=== PATIENT | female | born 1940 | race Caucasian/White ===

== ENCOUNTER → 2023-06-05 08:24 | Outpatient (REF) | payer OTHER, SELFPAY | LOC: WDC 08:24 | PROVIDERS: ATTENDING PHYSICIAN Internal Medicine | DX: Z12.31 Encounter for screening mammogram for malignant neoplasm of breast (principal) | CPT/HCPCS: 77063; 77067 ==

== ENCOUNTER → 2023-09-08 08:37 | Outpatient (REF) | payer OTHER, SELFPAY | LOC: RAD 08:37 | PROVIDERS: ATTENDING PHYSICIAN Internal Medicine | DX: N18.9 Chronic kidney disease, unspecified (principal) | CPT/HCPCS: 76770 ==

== ENCOUNTER → 2024-06-07 12:07 | Outpatient (REF) | payer OTHER, SELFPAY | LOC: WDC 12:07 | PROVIDERS: ATTENDING PHYSICIAN Internal Medicine | DX: Z12.31 Encounter for screening mammogram for malignant neoplasm of breast (principal) | CPT/HCPCS: 77063; 77067 ==

== ENCOUNTER 2024-11-25 15:13 | Inpatient (IN) | payer OTHER, SELFPAY ==
[2024-11-25] VITALS (7 sets, daily range): BP systolic 115–158; BP diastolic 52–81; BMI 22.7; BMI 22.4
--- NOTE | 2024-11-25 11:00 | ED.GENMED ---
History of Present Illness
General
Chief Complaint: Fall
Source: patient and family
Time Seen by Provider: 11/25/24 10:47
History of Present Illness
History of Present Illness:
84-year-old female with past medical history of hypertension, previous left breast cancer presenting to the emergency department for evaluation of reported change in mental status, nausea, chills and generalized weakness resulting in a fall
yesterday evening with left-sided head trauma noted. Patient notes that about 2 days ago she started with urinary frequency, urgency and dysuria typical of a urinary tract infection for her, she gave a urine sample to her urologist Dr. Parra, and
was started on an antibiotic sees patient unsure as to what antibiotic she was started on). Daughter notes that this morning when she called the patient the patient seemed to have a change in mental status, hung up on the daughter a call for her
but by the time they got to the emergency department the daughter is stating patient seems to be back to her usual mental status. At present time patient's only concern is mild nausea, she denies any back or flank pain, was unaware of any fevers,
no chest pain or shortness of breath and has no other concerns at this time.
Past History
Past History
ED Past Medical History: Cancer and HTN
ED Past Surgical History: Other
Social History
Tobacco: Non-smoker
Alcohol: None
Drug: None
Personal:
Living: alone
Review of Systems
Review of Systems
All Other Systems: ROS reviewed and negative except as documented in HPI and ROS
Phy Exam
Physical Exam
Physical Exam:
GENERAL: Alert , in no apparent distress
HEAD: Normocephalic atraumatic
EYE: clear conjunctiva
NECK: Supple
ENT: o/p clr, mmm.
CARDIAC: Regular rate and rhythm .
LUNGS: Clear breath sounds bilaterally, no acute respiratory distress, no wheezes/rales/rhonchi
ABDOMEN: Soft, without focal tenderness, no r/g, no cvat
NEUROLOGICAL: Alert and oriented
SKIN: Warm and dry, skin intact.
MUSCULOSKELETAL: No edema, well perfused.
PSYCH: Normal and appropriate interaction.
Scores
Heart Failure Risk
Heart Failure Risk Score: Not Applicable
Heart Score for Chest Pain Patients
STEMI patient?: Not applicable
Withdrawal Assessment of Alcohol
Withdrawal Assessment Completed?: Not applicable
Sepsis
Sepsis Screening
Sepsis Assessment: Sepsis
Sepsis Screen
Sepsis Screen: Sepsis
Date: 11/25/24
Time: 15:11
Course
Orders/Labs/Results
Orders:
Orders
11/25/24 10:54
0.9% Sodium Chloride 1000 ml [Nss] 1,800 ml IV NOW STA
Ondansetron Injectable [Zofran] 4 mg IV NOW STA
11/25/24 10:56
CT Head W/o Iv Contrast Urgent
Comment:
Reason For Exam: fall, left sided head trauma
11/25/24 11:00
Lactic Acid Q4H
Comment: CANCEL 2nd LACTIC ACID IF 1st LACTIC ACID IS LESS THAN 2
11/25/24 11:08
Complete Blood Count/With Diff Urgent
Comprehensive Metabolic Panel Urgent
Lactic Acid Q4H
Comment: CANCEL 2nd LACTIC ACID IF 1st LACTIC ACID IS LESS THAN 2
Manual Differential Urgent
Blood Culture Q30M
JESSE Source: Blood/Venous
Specimen Description:
11/25/24 11:15
Blood Culture Q30M
JESSE Source: Blood/Venous
Specimen Description:
11/25/24 11:56
US Abdomen Complete/Upper Urgent
Comment:
Reason For Exam: fever, abnormal LFT, change in mental status
11/25/24 12:02
Piperacillin/Tazo 3.375 Gram [Zosyn] 3.375 gram in 50 ml IV NOW
11/25/24 12:05
COVID-19 Antigen Urgent
Source: Nasal Swab
Ehrlichia/Anaplasma by PCR [S] Urgent
Lyme Progressive Urgent
Blood Parasites Urgent
JESSE Source: Blood/Venous
Specimen Description:
11/25/24 14:00
Urinalysis Reflex To Culture Urgent
Date Specimen was Collected: 11/25/24
Time Specimen was Collected: 13:50
Urine Microscopic Reflex Cult Urgent
11/25/24 14:15
Admit/Transfer Patient As Directed
Co-Sign Provider:
Level of Care: Inpatient admission
Assign to:: Medical/Surgical
Physician / Group: dania
Diagnosis: sepsis uti
Reason for Hospitalization: sepsis uti
Expected length of stay greater than two midnights?: Yes
ELOS- Estimated Length of Stay in days: 2
I certify the patient meets the requirements for IP care: Yes
PRN Pain Medication Management As Directed
May give lesser potent ordered pain med per pt: Yes
preference::
Protocol:: Medication orders for pain may be administered in a
manner that supports deferring to patient preference
when the pt is:
- Requesting an ordered lesser potent pain medication.
Least to most potent pain medications are defined
as: acetaminophen < NSAID < tramadol < opioids
(morphine, oxycodone, hydromorphone).
- Requesting a lesser dose of the same medication IF
ORDERED.
- Requesting a less intrusive route of administration
if both routes are prescribed by the provider (PO <
IV).
11/25/24 14:16
Code Status As Directed
Resuscitation Status: Do not resuscitate
Reached after discussion with pt or family/Healthcare POA: Yes
DNR Bracelet Application ONCE
Abnormal Lab Results
11/25/24 11/25/24
11:08 14:00
MPV 11.5 H fL
(7.4-10.4)
Abs Neuts (Manual) 9.7 H 10^3/uL
(1.4-6.5)
Segmented Neutrophils 83 H %
(42-75)
Band Neutrophils 14 H %
(0-3)
Lymphocytes (Manual) 3 L %
(20-51)
Sodium 133 L mmol/L
(135-145)
Potassium 3.1 L mmol/L
(3.5-5.1)
Chloride 95 L mmol/L
(98-107)
BUN 34 H mg/dl
(7-17)
Creatinine 2.1 H mg/dL
(0.6-1.0)
Glucose 126 H mg/dl
(70-99)
Total Bilirubin 1.9 H mg/dl
(0.2-1.3)
AST 531 H* U/L
(14-36)
ALT 266 H U/L
(0-35)
Alkaline Phosphatase 140 H U/L
(38-126)
Urine Ketones 1+ A
(Negative)
Ur Occult Blood Reflex 2+ A
(Negative)
Urine RBC 7-10 A /HPF
(0-2)
Urine Albumin (Reflex) 2+ A
(Neg - Trace)
11/25/24 11:08
11/25/24 11:08
Vital Signs
Initial and Last Documented VS:
Initial Vital Signs
Temp Pulse Resp BP Pulse Ox
100.9 F H 81 18 126/81 95
11/25/24 10:07 11/25/24 10:07 11/25/24 10:07 11/25/24 10:07 11/25/24 10:07
Last Documented Vital Signs
Temp Pulse Resp BP Pulse Ox
100.1 F 62 22 115/66 98
08/21/25 11:06 11/25/24 14:30 11/25/24 14:30 11/25/24 14:00 11/25/24 14:30
MDM/Problems Addressed
Differential Diagnosis Includes:
Cystitis
Pyelonephritis
Uroseptic/bacteremia
Kidney stone
Electrolyte imbalance
Anemia
Acute kidney injury
TIA considered/CVA however given no other neurologic findings thought to be much less likely
Intracranial bleeding given the head trauma
MDM/Problems Addressed:
84-year-old female presenting to the ER for evaluation after she started to feel unwell yesterday evening while out at dinner with family, chills and nausea, daughter reports change in mental status today. Patient found to be febrile on arrival to
the ER. Will treat fever with Tylenol. Sepsis fluids ordered as well as Zofran for symptoms. Labs ordered. Will check urinalysis. Head CT ordered given the fall and trauma. Anticipate admission.
*Radiology
Radiology exam reviewed: radiology read reviewed
*Pulse Oximetry
SaO2: 95
Oxygen Mode of Delivery: Room air
Patient hypoxic: no
*Critical Care Note
Total Time (30-74mins, 75-104mins- exclusive of procedures): Not Applicable
Patient Management
Discussion with other providers: Hospitalist
Escalation/DeEscalation of care consider admission/obs:
Patient's workup with no leukocytosis however there is significantly elevated neutrophil count, bandemia, patient has known mild chronic kidney disease, slightly worse than baseline as well as significantly abnormal LFTs. Considering possible
ascending cholangitis given her fever and reported change in mental status. Stat ultrasound of the abdomen/gallbladder ordered. IV Zosyn ordered for possible UTI in addition to possible GI pathology. Ultrasound of the abdomen ultimately ended up
without any acute findings. Unclear source for patient's abnormal LFTs. Hospitalist team was notified and accepts for continued evaluation and treatment.
ED Attending Note
-
Portions of this chart may have been created with voice recognition software.� Occasional wrong word or��sound alike� substitutions may have occurred due to the inherent limitations of voice recognition software.
Discharge Plan
Departure
Patient Disposition: Admit
Date of Disposition: 11/25/24
Time of Disposition: 13:40
Presentation/result/management discussed w/ accepting MD/DO: Hospitalist
Discharge Problem:
Sepsis, Abnormal LFTs, KOURTNEY (acute kidney injury)
Prescriptions:
No Action
amlodipine [Norvasc] 5 mg Tablet
5 mg PO DAILY
hydrochlorothiazide 25 mg Tablet
25 mg PO DAILY
nitrofurantoin monohyd/m-cryst [Macrobid] 100 mg Capsule
100 mg PO BID
Rx Instructions:
for 5 days starting 11/24/24
cholecalciferol (vitamin D3) [Vitamin D3] 25 mcg (1,000 unit) Tablet
25 mcg PO DAILY
Referrals:
Nick Hui MD [Family Provider, Internal Medicine]
Interventions
Interventions:
*Risk Screen - Suicide Last Done: 11/25/24 11:03
*General Assessment Last Done: 11/25/24 11:03
*Neglect/Abuse Screening Last Done: 11/25/24 11:03
*ED- Fall Risk Assessment Last Done: 11/25/24 11:03
*ED COVID-19 Vaccine History Last Done: 11/25/24 11:03
ED-Musculoskeletal Assessment Last Done: 11/25/24 12:28
ED- Neurological Assessment Last Done: 11/25/24 11:04
ED-Skin Assessment Last Done: 11/25/24 11:04
Discharge Date and Time
Print Language: CHINESE
[2024-11-25] MEDS: NSS 1800 ML IV (11:07)
[2024-11-25] MEDS: ZOFRAN 4 MG IV (11:08)
[2024-11-25 11:29] LABS: Hematocrit 40.4 % (37.0-47.0); Hemoglobin 14.3 g/dL (12.0-16.0); Mean Corp Hgb Conc. 35.4 g/dL (33.0-37.0); Mean Corpuscular Volume 85.1 fL (81.0-99.0); Platelet Count 136 10^3/uL (130-400); Red Cell Dist. Width 12.4 % (11.5-14.5)
[2024-11-25 11:51] LABS: ALT (SGPT) 266 U/L (0-35); AST (SGOT) 531 U/L (14-36); Albumin 4.6 g/dl (3.5-5.0); Alkaline Phosphatase 140 U/L (38-126); Blood Urea Nitrogen 34 mg/dl (7-17); Calcium 9.8 mg/dl (8.4-10.2); Carbon Dioxide 27 mmol/L (22-30); Chloride 95 mmol/L (98-107); Estimated Creatinine Clearance 16 ml/min; Glucose 126 mg/dl (70-99); Potassium 3.1 mmol/L (3.5-5.1); Sodium 133 mmol/L (135-145); Total Protein 7.5 g/dl (6.3-8.2); eGFR 23.09
[2024-11-25 11:56] LABS: Absolute Neutrophils -Man Diff 9.7 10^3/uL (1.4-6.5); Normal RBC Morphology Yes; Platelets Checked Yes; Total Cells Counted 100
[2024-11-25] MEDS: ZOSYN 50 IV ×2 (12:11→17:34)
[2024-11-25 12:46] LABS: COVID-19 Antigen Negative (Negative)
--- NOTE | 2024-11-25 14:19 | HPS.HSE ---
Addendum entered and electronically signed by Ирина Pennington MD 11/25/24 19:03:
Code status do not Intubate.
Original Note:
Family Physician
-
Family Physician: Nick Hui
Chief Complaint
-
urinary burning
History of Present Illness
84-year-old female past medical history of hypertension, breast cancer status post lumpectomy presenting with change in mental status, CKD, nausea and chills and generalized weakness resulting in a fall yesterday evening with left-sided head trauma
noted. 2 days ago she started having urinary frequency, urgency and burning with urination typical of prior urinary tract infections for her. She gave urine sample to her urologist Dr. Parra and was started on Macrobid yesterday. This morning
patient had change mental status and hung up on a call from her daughter but the time they got to emergency department daughter states that patient is back to her normal mental status. Patient did have nausea and vomiting today but denies any back
or flank pain. No fever. No chest pain or shortness of breath. Denies abdominal pain.
She drinks alcohol occasionally. Denies smoking.
Medical History
Past Medical History
Past Medical History: Reports Other (hypertension, breast cancer status post lumpectomy)
Past Surgical History: Reports Other (Tonsillectomy, Dupuytren's contracture surgery, bunion surgery, lumpectomy)
Social History
Tobacco: Non-smoker
Alcohol: None
Drug: None
Family History
Family History: Not pertinent
Allergies / Home Medications
Allergies reflects when Allergies were last updated in [facility].
Home Medications with original date entered in [facility]
Allergy/Medication List:
Allergies
Allergy/AdvReac Type Severity Reaction Status Date / Time
propoxyphene HCl (From Allergy Hives Verified 04/15/13 09:24
[place])
Home Medications
amlodipine 5 mg tablet (Norvasc) 5 mg PO DAILY 11/25/24
cholecalciferol (vitamin D3) 25 mcg (1,000 unit) tablet (Vitamin D3) 25 mcg PO DAILY 11/25/24
hydrochlorothiazide 25 mg tablet 25 mg PO DAILY 11/25/24
nitrofurantoin monohydrate/macrocrystals 100 mg capsule (Macrobid) 100 mg PO BID 11/25/24
Review of Systems
-
History Source: Patient
A 12 point ROS was completed and negative except as noted: Yes
Constitutional: Reports No Symptoms
EENT: Reports No Symptoms
Respiratory: Reports No Symptoms
Cardiac: Reports No Symptoms
Abdomen/GI: Reports No Symptoms
: Reports See HPI
Musculoskeletal: Reports No Symptoms
Skin: Reports No Symptoms
Neurological: Reports No Symptoms
Endocrine: Reports No Symptoms
Hematologic/Lymphatic: Reports No Symptoms
Psych: Reports No Symptoms
Physical Exam
Vital Signs
Vital Signs
Temp Pulse Resp BP Pulse Ox
100.1 F 68 15 137/52 98
11/25/24 11:06 11/25/24 13:15 11/25/24 13:15 11/25/24 13:15 11/25/24 11:30
Physical Exam
General: Well Developed, Well Nourished and No Apparent Distress
HEENT: NormoCephalic, Moist mucous membranes and Atraumatic
Respiratory: Clear
Cardiac: S1/S2 and Regular Rhythm; No Murmur or Rub
GI: Soft, Non Tender, Non Distended and Normal Bowel Sounds; No Organomegaly
Rectal: Deferred by Provider
Musculoskeletal: No Clubbing, No Cyanosis and No Edema
Skin: No Rash
Neuro: Nonfocal/grossly intact
Laboratory Results
-
11/25/24 11:08
11/25/24 11:08
Laboratory Results
Lactic Acid 1.6 mmol/L (0.7-2.0) 11/25/24 11:08
Total Bilirubin 1.9 mg/dl (0.2-1.3) H 11/25/24 11:08
AST 531 U/L (14-36) H* 11/25/24 11:08
ALT 266 U/L (0-35) H 11/25/24 11:08
Alkaline Phosphatase 140 U/L (38-126) H 11/25/24 11:08
Data Reviewed
-
Lab Data: Labs Reviewed by me
Old Records: Reviewed
Impression/Plan
-
IMPRESSION:
PLAN:
# Sepsis (fever, bandemia) likely UTI versus biliary source
- Urinalysis pending
-Blood cultures
- Abdominal ultrasound shows normal appearance of the gallbladder without biliary ductal dilatation
-IV fluids
- Zosyn
# Transaminitis unclear if secondary to transient hypotension versus biliary obstruction
-Liver ultrasound negative
- Babesia smear, Lyme's, ehrlichiosis pending
- Trend LFTs
- Consider MRI if LFTs worsen
# KOURTNEY on CKD
- Creatinine 2.1, patient states baseline 1.8
- IV fluids
- Hold hydrochlorothiazide
# Hypokalemia
- Replete potassium
# Fall with head injury yesterday
# Left scalp hematoma/contusion from fall
- CT head shows no acute intracranial abnormality, left frontal scalp soft tissue hematoma/contusion measuring 4 mm
Essential hypertension
- Hold hydrochlorothiazide
- Continue amlodipine
Breast cancer status post lumpectomy
DNR/DNI
DVT prophylaxis�heparin
Regular diet
[2024-11-25 14:42] LABS: Urine Character Clear (Clear)
[2024-11-25 14:58] LABS: Urine Urothelial Cell 0-2 /LPF (FEW)
[2024-11-25 15:00] LABS: Urine White Cell 0-2 /HPF (0-5)
[2024-11-25] MEDS: NSS 1000 IV (17:34)
[2024-11-25] MEDS: HEPARIN 5000 UNITS SC (20:07)
[2024-11-25] MEDS: COMPAZINE 5 MG IV (20:44)
[2024-11-26] MEDS: ZOSYN 50 IV ×3 (02:05→17:40)
[2024-11-26] MEDS: NSS 1000 IV ×2 (04:34→14:48)
[2024-11-26 07:11] LABS: Hematocrit 32.9 % (37.0-47.0); Hemoglobin 11.6 g/dL (12.0-16.0); Mean Corp Hgb Conc. 35.3 g/dL (33.0-37.0); Mean Corpuscular Volume 85.9 fL (81.0-99.0); Nucleated Red Blood Cells % 0 %; Platelet Count 97 10^3/uL (130-400); Red Cell Dist. Width 12.5 % (11.5-14.5)
[2024-11-26 07:30] VITALS: BP 121/48
[2024-11-26 07:44] LABS: ALT (SGPT) 168 U/L (0-35); AST (SGOT) 218 U/L (14-36); Albumin 3.1 g/dl (3.5-5.0); Alkaline Phosphatase 123 U/L (38-126); Blood Urea Nitrogen 30 mg/dl (7-17); Calcium 8.3 mg/dl (8.4-10.2); Carbon Dioxide 23 mmol/L (22-30); Chloride 107 mmol/L (98-107); Estimated Creatinine Clearance 16 ml/min; Glucose 84 mg/dl (70-99); Potassium 2.6 mmol/L (3.5-5.1); Sodium 136 mmol/L (135-145); Total Protein 5.4 g/dl (6.3-8.2); eGFR 21.84
[2024-11-26] MEDS: KCL 40 MEQ PO ×2 (09:14→11:14)
[2024-11-26] MEDS: HEPARIN 5000 UNITS SC ×2 (09:16→20:30)
[2024-11-26] MEDS: NORVASC 5 MG PO (09:16)
[2024-11-26] MEDS: VITAMIN D3 (cholecalciferol) 25 MCG PO (09:21)
--- NOTE | 2024-11-26 12:33 | CM ---
Initial assessment completed with patient who lives alone in a 2 story townhouse plus finished basement with B/B on 2nd and 1/2 bath on 1st, 2 steps to enter. [employer] patient was independent in ADL's and ambulation, drives. No DME. No in-home
services. No service. Does have HC-PO[facility]. PCP is Dr. Nick Hui. Pharmacy is [facility] in [place]. Discharge POC: Anticipate home with no needs.
--- NOTE | 2024-11-26 14:08 | W.PN.HOSP.TC ---
Today's Communication/Plan
-
Maintained on empiric antibiotic
Follow CBC
Follow-up blood culture report
Follow-up LFT
Assessment / Plan
Assessment / Plan
# Sepsis (fever, bandemia) - Source unclear
R/o bacteremia
-UA did not show any significant pyuria or bacteria
-Abdominal ultrasound rule out any cholecystitis
-Blood culture final report pending
-Superficial abrasion wound, no signs of infection
-Currently maintained on empiric Zosyn, monitor
# Thrombocytopenia
-Reason unclear
-With associated fever peripheral blood smear was checked and was negative for any parasitemia
# Transaminitis
Episode of nausea/vomiting
-Liver ultrasound negative
-Parasite smear negative
-No cholelithiasis, passed stone?
-Monitor LFT
# KOURTNEY on CKD
- Creatinine close to baseline, currently 2.2
- Maintain on gentle IV fluid
- Avoid nephrotoxic medication -hold home hydrochlorothiazide
# Hypokalemia
- replace prn
# Fall with head inju
# Left scalp hematoma/contusion from fall
- CT head shows no acute intracranial abnormality, left frontal scalp soft tissue hematoma/contusion measuring 4 mm
# Essential hypertension
- Hold hydrochlorothiazide
- Continue amlodipine
Breast cancer status post lumpectomy
DNR/DNI
DVT prophylaxis�heparin
Total time spent 55-minute
Anticipated Discharge: Within 24 hours
Subjective/Interval History
-
Date of Service: November 26, 2024
Afebrile after being brought up with the floor
Denies of having any new complaints
Denies of any significant pain on the left face
Objective Data
-
Labs:
Laboratory Results
11/26/24
06:43
WBC 3.9 L
Hgb 11.6 L
Hct 32.9 L
Plt Count 97 L D
Sodium 136
Potassium 2.6 L*
Chloride 107
Carbon Dioxide 23
BUN 30 H
Creatinine 2.2 H
Glucose 84
Calcium 8.3 L D
Total Bilirubin 1.0
AST 218 H
ALT 168 H
Alkaline Phosphatase 123
Vital Signs:
Vital Signs
Temp Pulse Resp BP Pulse Ox
98.0 F 64 16 121/48 97
11/26/24 07:30 11/26/24 07:30 11/26/24 07:30 11/26/24 07:30 11/26/24 07:30
Review of Systems
-
Respiratory: Reports No Symptoms
Cardiac: Reports No Symptoms
Abdomen/GI: Reports No Symptoms
Physical Exam
-
General: No Apparent Distress and Comfortable
HEENT: Other (Left periorbital echymosis); Negative Oxygen
Respiratory: Clear to Auscultation
Cardiac: Regular Rhythm and S1/S2; Negative Murmur or Rub
GI: Soft, Nontender and Nondistended
Musculoskeletal: No Edema
Neuro: Awake, Alert, Oriented, No Motor Deficits and Nonfocal/Grossly Intact
Psych: Calm
[2024-11-26 15:14] VITALS: BP 121/53
[2024-11-26 16:05] VITALS: BP 121/53; PULSE 55; O2SAT 98
[2024-11-26 23:00] VITALS: BP 130/46
[2024-11-27] MEDS: NSS 1000 IV (01:01)
[2024-11-27] MEDS: ZOSYN 50 IV ×2 (01:01→09:29)
[2024-11-27 07:43] VITALS: BP 140/65
[2024-11-27] MEDS: HEPARIN 5000 UNITS SC (07:45)
[2024-11-27] MEDS: NORVASC 5 MG PO (07:45)
[2024-11-27] MEDS: VITAMIN D3 (cholecalciferol) 25 MCG PO (07:47)
[2024-11-27 07:54] LABS: Hematocrit 33.1 % (37.0-47.0); Hemoglobin 11.7 g/dL (12.0-16.0); Mean Corp Hgb Conc. 35.3 g/dL (33.0-37.0); Mean Corpuscular Volume 88.5 fL (81.0-99.0); Platelet Count 105 10^3/uL (130-400); Red Cell Dist. Width 13.3 % (11.5-14.5)
[2024-11-27 08:35] LABS: ALT (SGPT) 127 U/L (0-35); AST (SGOT) 126 U/L (14-36); Albumin 3.3 g/dl (3.5-5.0); Alkaline Phosphatase 133 U/L (38-126); Blood Urea Nitrogen 29 mg/dl (7-17); Calcium 9.1 mg/dl (8.4-10.2); Carbon Dioxide 21 mmol/L (22-30); Chloride 114 mmol/L (98-107); Estimated Creatinine Clearance 16 ml/min; Glucose 82 mg/dl (70-99); Potassium 3.8 mmol/L (3.5-5.1); Sodium 141 mmol/L (135-145); Total Protein 5.7 g/dl (6.3-8.2); eGFR 23.09
--- NOTE | 2024-11-27 12:28 | CM ---
Patient seen at bedside
discharge today
IMM explained & signed. In chart
PLAN: Home, no needs
daughter to transport
[2024-11-27 12:49] VITALS: BP 138/64
--- NOTE | 2024-11-27 12:54 | W.PN.HOSP.TC ---
Addendum entered and electronically signed by Gopal Montes MD 12/07/24 08:20:
Add on to diagnosis list:
Pancytopenia
Sepsis was present on admission
Original Note:
Today's Communication/Plan
-
d/c home
Assessment / Plan
Assessment / Plan
# Sepsis (fever, bandemia) - Source unclear
R/o bacteremia
-UA did not show any significant pyuria or bacteria
-Abdominal ultrasound rule out any cholecystitis
-Blood culture negative.
-Superficial abrasion wound, no signs of infection
-Currently maintained on empiric Zosyn, monitor
# Thrombocytopenia
-Reason unclear
-With associated fever peripheral blood smear was checked and was negative for any parasitemia
# Transaminitis
Episode of nausea/vomiting
-Liver ultrasound negative
-Parasite smear negative
-No cholelithiasis, passed stone?
- Providing a follow-up prescription for repeat CMP in 1 week
# KOURTNEY on CKD
- Creatinine close to baseline, currently 2.2
- Maintain on gentle IV fluid
- Avoid nephrotoxic medication -hold home hydrochlorothiazide
# Hypokalemia
- replace prn
# Fall with head inj
# Left scalp hematoma/contusion from fall
- CT head shows no acute intracranial abnormality, left frontal scalp soft tissue hematoma/contusion measuring 4 mm
# Essential hypertension
- Hold hydrochlorothiazide
- Continue amlodipine
Breast cancer status post lumpectomy
DNR/DNI
DVT prophylaxis�heparin
More than 30 minutes spent in discharge including
Final examination of the patient
Summarizing hospital stay
Instructions for continuing care to all relevant caregivers
Preparation of discharge records, prescriptions, and referral forms
Total time spent (in minutes): 40 mins
Anticipated Discharge: Today
Subjective/Interval History
-
Date of Service: November 27, 2024
Afebrile overnight
No abdominal pain nausea/vomiting
Objective Data
-
Labs:
Laboratory Results
11/27/24
07:28
WBC 3.3 L
Hgb 11.7 L
Hct 33.1 L
Plt Count 105 L
Sodium 141
Potassium 3.8 D
Chloride 114 H
Carbon Dioxide 21 L
BUN 29 H
Creatinine 2.1 H
Glucose 82
Calcium 9.1
Total Bilirubin 0.7
AST 126 H
ALT 127 H
Alkaline Phosphatase 133 H
Vital Signs:
Vital Signs
Temp Pulse Resp BP Pulse Ox
97.9 F 68 16 138/64 97
11/27/24 12:49 11/27/24 12:49 11/27/24 12:49 11/27/24 12:49 11/27/24 12:49
I&O
11/26/24 11/27/24 11/28/24
06:59 06:59 06:59
Intake Total 960 / 960
Balance 960 / 960
Review of Systems
-
Respiratory: Reports No Symptoms
Cardiac: Reports No Symptoms
Abdomen/GI: Reports No Symptoms
Physical Exam
-
General: No Apparent Distress and Comfortable
HEENT: Other (Left periorbital echymosis); Negative Oxygen
Respiratory: Clear to Auscultation
Cardiac: Regular Rhythm and S1/S2; Negative Murmur or Rub
GI: Soft, Nontender and Nondistended
Musculoskeletal: No Edema
Neuro: Awake, Alert, Oriented, No Motor Deficits and Nonfocal/Grossly Intact
Psych: Calm
--- NOTE | 2024-11-28 15:43 | W.DCSUMMARY ---
Discharge Summary
Discharge Data
Date of Admission: 11/25/24
Date of Discharge: 11/27/24
-
Pending Results: No
Hospital Course
Discharging Physician : Dr Gopal Montes
Disposition : To home
Primary care physician : Dr Nick Hui
Principal Discharge diagnosis :
Fever of unclear origin
Acute transaminitis
Episode of nausea and vomiting
Facial injury from mechanical fall
Acute kidney injury
Chronic Discharge diagnosis :
History of breast cancer postlumpectomy
Essential hypertension
Hospital Course :
Patient is a 84-year-old female with a when she was medical history came to ER after having change in mental status. Patient was having generalized weakness and fell all day before ER presentation and had some left-sided facial injury. Patient
also reported having some nausea and vomiting. Patient was noted to having high-grade fever in the ER. Trauma workup with CT head ruled out any any intracranial abnormality. Further lab evaluation showing some transaminitis and abdominal
ultrasound was done which was negative for any acute abnormality. Patient was started on empiric antibiotic and further test were sent including blood culture/blood parasite smear. Over next 48 hours patient was monitored and patient had no
further episodes of fever. All the test resulted negative. Reason for patient symptoms remains unclear but possibility of viral gastroenteritis causing nausea or vomiting before admission versus passed gallstone in light of improving LFT. Patient
was discharged home off of antibiotic. Patient to follow-up with primary care physician with a follow-up blood work within 1 week.
Patient also had minimal renal dysfunction which improved with IV fluid. Hydrochlorothiazide was held which was resumed at discharge.
Important imaging findings :
None
Procedure findings :
None
Discharge Plan
-
Patient Disposition: Home (Routine Discharge)
Discharge Diagnosis/Procedures: Episode of nausea/vomiting, Abnormal liver enzymes, Fever episode
Condition: Fair
Diet: Regular
Activity: As tolerated
Driving Restrictions: No driving for 24 hours
Bathing Restrictions: OK to Shower
Referrals:
Nick Hui MD [Family Provider, Internal Medicine] - in one week
Prescriptions:
New
(DME) CMP
See Rx Instructions .Route .MEDSUPPLY Qty: 1 0RF
Rx Instructions:
Dx : Acute transaminases
Forward result to PCP office.
Continued
amlodipine [Norvasc] 5 mg Tablet
5 mg PO DAILY
hydrochlorothiazide 25 mg Tablet
25 mg PO DAILY
cholecalciferol (vitamin D3) [Vitamin D3] 25 mcg (1,000 unit) Tablet
25 mcg PO DAILY
Discontinued
nitrofurantoin monohyd/m-cryst [Macrobid] 100 mg Capsule
100 mg PO BID
Rx Instructions:
for 5 days starting 11/24/24
Discharge Orders:
Discharge Patient (As Directed); Ordered 11/27/24
Ordered By: Gopal Montes
Discharge Date and Time
Discharge Date/Time: 11/27/24 13:13
Print Language: GUATEMALAN
--- NOTE | 2024-11-29 09:21 | PN.CDI ---
CDI
- -
CDI:
Physician Documentation Request
Admit Date: 11/25/24 15:13
Dear Doctor Simon,
Please review the following and provide your response in the progress notes.
Clinical Indicators:
The diagnosis of sepsis was documented on 11/25-11/27 but is not consistently noted in subsequent documentation/discharge summary
T max 100.9 on 11/25/presenting temperature
11/25 heart rate 54-81, respiratory rate 14-22 WBC 10.0
Please clarify the following:
____ - Sepsis was present on admission
____ - Sepsis was ruled out
____ - Other
Use of terms such as suspected, likely, concern for, or probable (associated with a specific diagnosis that is being evaluated, monitored, or treated as if it exists) are acceptable and can be coded in the inpatient setting, when documented at the
time of discharge.
Thank you,
Ni Stinson RN, BSN
CDI Specialist
tiger text
Please use your independent medical judgment in providing your response.
--- NOTE | 2024-11-29 09:26 | PN.CDI ---
CDI
- -
CDI:
Physician Documentation Request
Admit Date: 11/25/24 15:13
Dear Doctor Simon,
Patient admitted for work up of fever.
Hematology results.
Laboratory Tests
11/26/24 11/27/24
06:43 07:28
WBC 3.9 L 3.3 L
RBC 3.83 L 3.74 L
Plt Count 97 L D 105 L
Based on the above, please provide a diagnosis that supports the above lab abnormalities and additional evaluation,/monitoring:
Pancytopenia
Abnormal lab values clinically insignificant
Other
Use of terms such as suspected, likely, concern for, or probable (associated with a specific diagnosis that is being evaluated, monitored, or treated as if it exists) are acceptable and can be coded in the inpatient setting, when documented at the
time of discharge.
Thank you,
Ni Stinson RN, BSN
CDI Specialist
tiger text
Please use your independent medical judgment in providing your response.
[2024-11-30 13:53] LABS: Lyme Antibody Screen, EIA Negative (Negative)
== END 2024-11-27 13:13 | disposition home or self-care (01) | DRG 872 ==
LOC: 3 WEST ACU 15:13
PROVIDERS: Physician Assistant Medical; ADMITTING PHYSICIAN Hospitalist; ATTENDING PHYSICIAN Hospitalist; EMERGENCY PHYSICIAN Emergency Medicine; FAMILY PHYSICIAN Internal Medicine
DX: A41.9 Sepsis, unspecified organism (principal); N17.9 Acute kidney failure, unspecified; D61.818 Other pancytopenia; A08.4 Viral intestinal infection, unspecified; K80.20 Calculus of gallbladder without cholecystitis without obstruction; I12.9 Hypertensive chronic kidney disease with stage 1 through stage 4 chronic kidney disease, or unspecified chronic kidney disease; Z66 Do not resuscitate; N18.9 Chronic kidney disease, unspecified; R74.01 Elevation of levels of liver transaminase levels; E87.6 Hypokalemia; S00.03XA Contusion of scalp, initial encounter; W19.XXXA Unspecified fall, initial encounter; Z85.3 Personal history of malignant neoplasm of breast; Z11.52 Encounter for screening for COVID-19
CPT/HCPCS: 70450; 76700; 80053; 81003; 81015; 83605; 85025; 85027; 86618; 87015; 87040; 87207; 87468; 87484; 87798; 87811; 93005; 96361; 96365; 96375; 97162; 99285